=== PATIENT | female | born 1990 | race Two or more races ===

== ENCOUNTER 2017-01-05 13:48 | Outpatient (CLI) | payer BC ==
[~2017-01-05] VITALS: Ht 157.5 cm; Wt 101.3 kg
[2017-01-05 13:57] VITALS: BP 108/60
[2017-01-05] MEDS ORDERED: PREN1TAB10 PO (14:15)
[2017-01-05] MEDS ORDERED: HYDROcodone/APAP 5/325 TABLET ONE (16:13)
[2017-01-05] MEDS ORDERED: HYDROcodone/APAP 5/325 TABLET PO ONE (16:30)
[2017-01-05] MEDS ORDERED: hydrOXyzine 10MG TABLET PO ONE (16:30)
== END 2017-01-05 16:44 | disposition home or self-care (01) ==
LOC: LDOP 13:48
PROVIDERS: ATTEND Student in an Organized Health Care Education/Training Program
DX: O48.0 Post-term pregnancy (principal); Z3A.40 40 weeks gestation of pregnancy
CPT/HCPCS: 59025; 99201; G0463

== ENCOUNTER 2017-01-06 18:26 | Inpatient (IN) | payer BC ==
[~2017-01-06] VITALS: Ht 157.5 cm; Wt 101.0 kg
[~2017-01-06 18:26] MED LIST: PREN1TAB10 PO
[2017-01-06] MEDS ORDERED: OXYTOCIN 30U/ 0.9% NaCL 500ML 500 ML IV ONE (19:13)
[2017-01-06] MEDS ORDERED: TERBUTALINE 1 MG/ML, 1ML IVPush PRN (19:30)
[2017-01-06] MEDS ORDERED: ONDANSETRON 2MG/ML, 2ML IVPush PRN (19:30)
[2017-01-06] MEDS ORDERED: FENTANYL PF 100 MCG/2ML IVPush PRN (19:30)
[2017-01-06] MEDS ORDERED: FENTANYL PF 100 MCG/2ML IV PRN (19:30)
[2017-01-06] MEDS ORDERED: CALCIUM CARBONATE 500 MG TAB.CHEW PO PRN (19:30)
[2017-01-06] MEDS: LACTATED RINGERS 1,000 ML IV SCH ×2 (19:33→21:34)
[2017-01-06] MEDS ORDERED: NEWBORN KIT ONE (19:46)
[2017-01-06] MEDS ORDERED: OXYTOCIN 30U/ 0.9% NaCL 500ML 500 ML ONE (19:46)
[2017-01-06] MEDS: D5%-LACTATED RINGERS 1,000 ML IV SCH (20:53)
[2017-01-06] MEDS ORDERED: OXYTOCIN 30U/ 0.9% NaCL 500ML 500 ML IV PRN (21:59)
[2017-01-06] MEDS ORDERED: FENTANYL PF 100 MCG/2ML ONE (23:15)
[2017-01-07] MEDS: LACTATED RINGERS 1,000 ML IV SCH (00:46)
[2017-01-07] MEDS ORDERED: FENTANYL/BUPIV./NS/PF 250 ML EPIDCONT SCH (00:58)
[2017-01-07] MEDS ORDERED: LACTATED RINGERS 1,000 ML IV SCH (00:58)
[2017-01-07] MEDS ORDERED: FENTANYL/BUPIV./NS/PF 250 ML EPIDCONT ONE (01:00)
[2017-01-07] MEDS ORDERED: BUPIVACAINE/PF 0.25% ONE (01:00)
[2017-01-07] MEDS ORDERED: LACTATED RINGERS 1,000 ML IVBOLUS PRN (01:00)
[2017-01-07] MEDS ORDERED: EPHEDRINE 50 MG/ML, 1ML IVPush PRN (01:00)
[2017-01-07] MEDS ORDERED: NALOXONE 0.4 MG/ML, 1ML IVPush PRN (01:00)
[2017-01-07] MEDS: D5%-LACTATED RINGERS 1,000 ML IV SCH (03:13)
[2017-01-07] MEDS ORDERED: MISOPROSTOL 200 MCG TABLET ONE (05:36)
[2017-01-07] MEDS ORDERED: NEWBORN KIT ONE (05:58)
[2017-01-07] MEDS ORDERED: HYDROcodone/APAP 5/325 TABLET ONE (06:12)
[2017-01-07] MEDS ORDERED: IBUPROFEN 600 MG TABLET ONE (06:12)
[2017-01-07] MEDS ORDERED: OXYTOCIN 30U/ 0.9% NaCL 500ML 500 ML ONE (06:12)
[2017-01-07] MEDS: OXYTOCIN 30U/ 0.9% NaCL 500ML 500 ML IV SCH ×2 (06:14→16:14)
[2017-01-07] MEDS: IBUPROFEN 600 MG TABLET PO PRN ×2 (06:17→11:57)
[2017-01-07] MEDS: HYDROcodone/APAP 5/325 TABLET PO PRN ×2 (06:18→11:58)
[2017-01-07] MEDS ORDERED: HYDROcodone/APAP 5/325 TABLET PO PRN (06:30)
[2017-01-07] MEDS ORDERED: DOCUSATE 100 MG CAPSULE PO PRN (06:30)
[2017-01-07] MEDS ORDERED: CALCIUM CARBONATE 500 MG TAB.CHEW PO PRN (06:30)
[2017-01-07] MEDS ORDERED: MISOPROSTOL 200 MCG TABLET PR PRN (06:30)
[2017-01-07] MEDS ORDERED: ONDANSETRON 2MG/ML, 2ML IV PRN (06:30)
[2017-01-07] MEDS ORDERED: ACETAMINOPHEN 325 MG TABLET PO PRN (06:30)
[2017-01-07 08:00] VITALS: BP 106/56
[2017-01-07] MEDS: PRENATAL VIT/IRON/FA 1 EACH TABLET PO SCH (09:00)
[2017-01-07 12:00] VITALS: BP 108/50
[2017-01-07 16:00] VITALS: BP 104/62
[2017-01-07 20:15] VITALS: BP 118/74
[2017-01-08 00:40] VITALS: BP 101/56
[2017-01-08] MEDS: OXYTOCIN 30U/ 0.9% NaCL 500ML 500 ML IV SCH (02:14)
[2017-01-08 04:00] VITALS: BP 112/58
[2017-01-08] MEDS: IBUPROFEN 600 MG TABLET PO PRN (05:33)
[2017-01-08] MEDS: PRENATAL VIT/IRON/FA 1 EACH TABLET PO SCH (07:54)
[2017-01-08] MEDS ORDERED: IBUP-1222 PO (08:40)
[2017-01-08] MEDS ORDERED: DOCU-30 PO (08:40)
[2017-01-08 10:00] VITALS: BP 93/46
== END 2017-01-08 20:00 | disposition home or self-care (01) | DRG 775 ==
LOC: LDOP 18:26 → LDIP 19:09 → 2NW 01-07 07:46
PROVIDERS: ADMIT Student in an Organized Health Care Education/Training Program; ATTEND Student in an Organized Health Care Education/Training Program
PROC: 10E0XZZ Delivery of Products of Conception, External Approach (ICD-10-PCS; principal; 2017-01-07)
PROC: 0HQ9XZZ Repair Perineum Skin, External Approach (ICD-10-PCS; 2017-01-07)
PROC: 3E0R3CZ (ICD-10-PCS; 2017-01-07)
PROC: 00HU33Z Insertion of Infusion Device into Spinal Canal, Percutaneous Approach (ICD-10-PCS; 2017-01-07)
DX: O76 Abnormality in fetal heart rate and rhythm complicating labor and delivery (principal); O41.1230 Chorioamnionitis, third trimester, not applicable or unspecified; Z68.41 Body mass index [BMI] 40.0-44.9, adult; O99.281 Endocrine, nutritional and metabolic diseases complicating pregnancy, first trimester; O70.0 First degree perineal laceration during delivery; E28.2 Polycystic ovarian syndrome; O99.214 Obesity complicating childbirth; E66.9 Obesity, unspecified; Z37.0 Single live birth; Z3A.40 40 weeks gestation of pregnancy
CPT/HCPCS: 36415; 82803; 85025; 86850; 86900; J3010; J3490; J2590; J7120; J7121